=== PATIENT | male | born 1945 | race Caucasian/White ===

== ENCOUNTER 2019-08-20 06:56 | Day surgery (SDC) | payer MEDICARE ==
[~2019-08-20] VITALS: Ht 172.7 cm; Wt 56.7 kg
[~2019-08-20 06:56] MED LIST: TIMOLOL 0.25%5 ML OP; XALATAN0.005 % OP
[2019-08-20 09:45] VITALS: BP 121/68
== END 2019-08-20 08:48 | disposition home or self-care (01) ==
LOC: ORM 06:56
PROVIDERS: ATTEND Internal Medicine Gastroenterology
PROC: 0DBK8ZX Excision of Ascending Colon, Via Natural or Artificial Opening Endoscopic, Diagnostic (ICD-10-PCS; principal; 2019-08-20)
PROC: 0DBL8ZX Excision of Transverse Colon, Via Natural or Artificial Opening Endoscopic, Diagnostic (ICD-10-PCS; 2019-08-20)
PROC: 0DBN8ZX Excision of Sigmoid Colon, Via Natural or Artificial Opening Endoscopic, Diagnostic (ICD-10-PCS; 2019-08-20)
PROC: 0DBH8ZX Excision of Cecum, Via Natural or Artificial Opening Endoscopic, Diagnostic (ICD-10-PCS; 2019-08-20)
DX: D12.0 Benign neoplasm of cecum (principal); D12.3 Benign neoplasm of transverse colon; D12.2 Benign neoplasm of ascending colon; D12.5 Benign neoplasm of sigmoid colon; K64.4 Residual hemorrhoidal skin tags; Z80.0 Family history of malignant neoplasm of digestive organs

== ENCOUNTER 2022-02-28 12:36 | Emergency (ER) | payer MEDICARE ==
[~2022-02-28] VITALS: Ht 172.7 cm; Wt 44.0 kg
[~2022-02-28 12:36] MED LIST changes: +ALLERGY RELIEF180 M1 PO; +CLARITIN-D1 TA2 PO; +TESSALON PERLE100 MG PO
[2022-02-28 13:58] LABS: HEMATOCRIT 42.9 % (39.0-50.0); HEMOGLOBIN 12.9 g/dl (14.0-18.0); IMMATURE GRANULOCYTES 0.3 % (0.0-5.0); MEAN CELL VOLUME 87.9 fL CALC (80.0-100.0); MEAN CORPUSCULAR HGB 26.4 pG CALC (26.0-32.0); MEAN CORPUSCULAR HGB CONC 30.1 g/dL CAL (32.0-36.0); NEUT# 16.89 thou/uL (1.82-7.42); RED BLOOD COUNT 4.88 mill/uL (4.70-6.10); RED CELL DISTRI WIDTH 15.3 % (11.5-15.5)
[2022-02-28 14:18] LABS: ALBUMIN 3.3 g/dL (3.2-5.0); ALKALINE PHOSPHATASE 127 u/l (38-126); ANION GAP 16 (6-22 (CALC)); BILIRUBIN, TOTAL 0.5 mg/dL (0.0-1.4); BUN 36 mg/dL (8-23); BUN/CREATININE RATIO 28 (12-20 (CALC)); CARBON DIOXIDE 29 mmol/l (22-30); CHLORIDE 99 mmol/l (95-108); CREATININE 1.3 mg/dL (0.7-1.3); GFR 54 ML/MIN (>=60 (CALC)); GFR FOR AFR.AMER. > 60 ML/MIN (>=60 (CALC)); LIPASE 143 u/l (23-300); MAGNESIUM 2.2 mg/dL (1.6-2.3); POTASSIUM 4.5 mmol/l (3.5-5.1); SGOT/AST 22 u/l (19-48); SODIUM 139 mmol/l (137-146); TOTAL PROTEIN 8.1 g/dL (6.3-8.2)
[2022-02-28 17:38] VITALS: BP 104/66
== END 2022-02-28 17:38 | disposition short-term general hospital (02) ==
LOC: ED 12:36
PROVIDERS: Family Medicine
DX: R22.1 Localized swelling, mass and lump, neck (principal); R91.8 Other nonspecific abnormal finding of lung field; R64 Cachexia; R62.7 Adult failure to thrive; H40.9 Unspecified glaucoma; Z87.442 Personal history of urinary calculi; Z20.822 Contact with and (suspected) exposure to COVID-19
CPT/HCPCS: Q9967

== ENCOUNTER 2023-11-18 11:04 | Inpatient (IN) | payer MEDICARE ==
[2023-11-18] VITALS (14 sets, daily range): BP systolic 106–135; BP diastolic 67–76
[~2023-11-18] VITALS: Ht 172.7 cm; Wt 48.0 kg
--- NOTE | 2023-11-18 11:04 | NUR ---
PATIENT ARRIVED TO ER VIA POV. PATIENT WHEELED TO ROOM BY ER STAFF. PATIENT AWAKE, ALERT AND STABLE. NO DISTRESS NOTED. PHYSCIIAN NOTIFIED.
[2023-11-18 11:35] LABS: BASO% 0.1 % (0-3); EOS% 0.2 % (0-8); HEMOGLOBIN 14.6 g/dl (14.0-18.0); IMMATURE GRANULOCYTES 0.2 % (0.0-5.0); LYMPH% 6.4 % (15-41); MEAN CELL VOLUME 92.7 fL CALC (80.0-100.0); MEAN CORPUSCULAR HGB CONC 31.3 g/dL CAL (32.0-36.0); MONO% 5.2 % (2-13); NEUT# 10.61 thou/uL (1.82-7.42); NEUT% 87.9 % (42-76); RED BLOOD COUNT 5.04 mill/uL (4.70-6.10); RED CELL DISTRI WIDTH 14.4 % (11.5-15.5)
[2023-11-18 11:37] LABS: HEMATOCRIT 46.7 % (39.0-50.0)
--- NOTE | 2023-11-18 11:38 | NUR ---
XRAY IN ROOM WITH PT.
[2023-11-18 11:51] LABS: ALBUMIN 3.6 g/dL (3.2-5.0); ALKALINE PHOSPHATASE 91 u/l (38-126); ANION GAP 15 (6-22 (CALC)); BUN 42 mg/dL (8-23); BUN/CREATININE RATIO 30 (12-20 (CALC)); CARBON DIOXIDE 27 mmol/l (22-30); CHLORIDE 103 mmol/l (95-108); CREATININE 1.4 mg/dL (0.7-1.3); GFR FOR AFR.AMER. 60 ML/MIN (>=60 (CALC)); GFR OTHER RACES 49 ML/MIN (>=60 (CALC)); POTASSIUM 4.8 mmol/l (3.5-5.1); SGOT/AST 29 u/l (19-48); SODIUM 140 mmol/l (137-146); TOTAL PROTEIN 8.1 g/dL (6.3-8.2)
[2023-11-18 11:52] LABS: BILIRUBIN, TOTAL 0.8 mg/dL (0.2-1.3)
--- NOTE | 2023-11-18 12:30 | NUR ---
PT VERBALIZED NO NEEDS. PT ADVISED OF CONTINUED WAIT TIMES.
--- NOTE | 2023-11-18 13:30 | NUR ---
PT VSS. PT IS ALERT. CALL LIGHT IN REACH.
--- NOTE | 2023-11-18 14:30 | NUR ---
PT IS AWARE OF CONTINUED WAIT TIMES. PT VSS. PT VERBALZIED NO NEEDS.
[2023-11-18 15:10] LABS: URINE BLOOD DIPSTICK Trace-intact (NEGATIVE); URINE GLUCOSE - DIPSTICK Negative (NEGATIVE); URINE KETONE Trace mg/dL (NEGATIVE); URINE LEUK ESTERASE Negative (NEGATIVE); URINE NITRITE - DIPSTICK Negative (Negative); URINE PH 5.5 (4.5-8.0); URINE PROTEIN - DIPSTICK Negative (NEG-TRACE); URINE SPECIFIC GRAVITY >=1.030; URINE UROBILINOGEN - DIPSTICK 0.2 E.U./dL (0.2)
[2023-11-18 15:16] LABS: URINE COLOR Dark yellow
--- NOTE | 2023-11-18 15:30 | NUR ---
PT VERBALIZED NO NEEDS. PT PROVIDED A WARM BLANKET. VSS
--- NOTE | 2023-11-18 16:30 | NUR ---
PT IS Aware of continued wait times.
--- NOTE | 2023-11-18 18:32 | NUR ---
PT SETTLED IN BED PT ABLE TO STAND WITH ASSISTANCE. ALL SAFETY PRECAUTIONS IN PLACE WITH CALL LIGHT IN REACH.
--- NOTE | 2023-11-18 18:35 | NUR ---
PT REPORT PROVIDED TO [facility] NURSE. PT GATHERED ALL BELONINGS PRIOR TO DEPATURE FROM ER.
--- NOTE | 2023-11-18 20:00 | NUR ---
PT RESTING ASSESSMENT AND ADMISSION DONE WITH FAMILY AT BEDSIDE. NO DISTRESS NOTED. PT HAS A GUEVARA URINE EVA IN COLOR WITH FOUL ODOR. IV FLUIDS STARTED. ALL QUESTIONS ANSWERED. CALL LIGHT WITHIN REACH. PLAN OF CARE ONGOING.
--- NOTE | 2023-11-19 | NUR ---
PT SLEEPING NO DISTRESS NOTED ON EXAM. CALL LIGHT WITHIN REACH.
[2023-11-19 00:13] VITALS: BP 102/53
--- NOTE | 2023-11-19 04:30 | NUR ---
PT RESTING REPORTS NO DISCOMFORT. GUEVARA CATHETER BAG EMPTIED 300 OUT YELLOW IN COLOR. CALL LIGHT WITHIN REACH. PLAN OF CARE ONGOING.
[2023-11-19 04:53] VITALS: BP 102/49
[2023-11-19 06:14] LABS: BASO% 0.1 % (0-3); EOS% 1.1 % (0-8); HEMOGLOBIN 12.7 g/dl (14.0-18.0); IMMATURE GRANULOCYTES 0.1 % (0.0-5.0); LYMPH% 8.5 % (15-41); MEAN CELL VOLUME 92.4 fL CALC (80.0-100.0); MEAN CORPUSCULAR HGB CONC 32.5 g/dL CAL (32.0-36.0); MONO% 6.5 % (2-13); NEUT# 6.93 thou/uL (1.82-7.42); NEUT% 83.7 % (42-76); RED BLOOD COUNT 4.23 mill/uL (4.70-6.10); RED CELL DISTRI WIDTH 14.4 % (11.5-15.5)
[2023-11-19 06:33] LABS: HEMATOCRIT 39.1 % (39.0-50.0)
[2023-11-19 06:42] LABS: ANION GAP 6 (6-22 (CALC)); BUN 37 mg/dL (8-23); BUN/CREATININE RATIO 35 (12-20 (CALC)); CHLORIDE 103 mmol/l (95-108); CREATININE 1.1 mg/dL (0.7-1.3); GFR FOR AFR.AMER. > 60 ML/MIN (>=60 (CALC)); GFR OTHER RACES > 60 ML/MIN (>=60 (CALC)); MAGNESIUM 2.3 mg/dL (1.6-2.3); POTASSIUM 4.2 mmol/l (3.5-5.1); SODIUM 140 mmol/l (137-146)
[2023-11-19 06:43] LABS: CARBON DIOXIDE 35 mmol/l (22-30)
--- NOTE | 2023-11-19 07:16 | NUR ---
pt glucose was 142 @0630
--- NOTE | 2023-11-19 07:26 | NUR ---
SHIFT CHANGE REPORT, PT AWAKE ALERT AND ORIENTED RESTING IN BED, DENIES PAIN/DISCOMFORT, IVF INFUSING, TELE MONITOR IN PLACE, GUEVARA CATHETER IN PLACE WITH YELLOW URINE, CALL FREED IN REACH AND BED LOCKED IN LOWEST POSITION.
[2023-11-19 07:43] VITALS: BP 101/56
[2023-11-19 11:07] VITALS: BP 95/54
[2023-11-19] MEDS ORDERED: DORZOLAMIDE HCL/1 ML (15:29)
[2023-11-19] MEDS ORDERED: (None)1 % (15:31)
[2023-11-19] MEDS ORDERED: XALATAN0.005 % (15:33)
[2023-11-19 16:17] VITALS: BP 119/71
--- NOTE | 2023-11-19 20:00 | NUR ---
PT ASSISTED TO BSC WITH MINIMAL HELP. PT ALERT AND ORIENTED. NO DISTRESS NOTED ON EXAM. ASSESSMENT DONE. PT ABLE TO HAVE A BM WITHOUT ANY DIFFICULTY. BED LINENS CHANGED. CALL LIGHT WITHIN REACH. BED ALARM ON. PLAN OF CARE ONGOING.
[2023-11-19 20:25] VITALS: BP 103/52
[2023-11-20] VITALS (7 sets, daily range): BP systolic 87–138; BP diastolic 49–67
--- NOTE | 2023-11-20 | NUR ---
PT RESTING NO DISTRESS NOTED. BED ALARM ON. CALL LIGHT WITHIN REACH. PLAN OF CARE ONGOING.
[2023-11-20 06:02] LABS: HEMATOCRIT 33.4 % (39.0-50.0); IMMATURE GRANULOCYTES 0.1 % (0.0-5.0); LYMPH% 5.2 % (15-41); MEAN CELL VOLUME 94.9 fL CALC (80.0-100.0); MEAN CORPUSCULAR HGB 30.1 pG CALC (26.0-32.0); MEAN CORPUSCULAR HGB CONC 31.7 g/dL CAL (32.0-36.0); MONO% 2.2 % (2-13); NEUT# 7.03 thou/uL (1.82-7.42); NEUT% 91.5 % (42-76); RED BLOOD COUNT 3.52 mill/uL (4.70-6.10); RED CELL DISTRI WIDTH 14.6 % (11.5-15.5)
[2023-11-20 06:17] LABS: HEMOGLOBIN 10.6 g/dl (14.0-18.0)
[2023-11-20 06:18] LABS: ANION GAP 6 (6-22 (CALC)); BUN 23 mg/dL (8-23); BUN/CREATININE RATIO 30 (12-20 (CALC)); CHLORIDE 108 mmol/l (95-108); CREATININE 0.8 mg/dL (0.7-1.3); GFR FOR AFR.AMER. > 60 ML/MIN (>=60 (CALC)); GFR OTHER RACES > 60 ML/MIN (>=60 (CALC)); POTASSIUM 3.6 mmol/l (3.5-5.1); SODIUM 136 mmol/l (137-146)
[2023-11-20 06:22] LABS: CARBON DIOXIDE 26 mmol/l (22-30)
--- NOTE | 2023-11-20 07:00 | NUR ---
BEDSIDE REPORT RECIEVED
--- NOTE | 2023-11-20 08:01 | NUR ---
PT RESTING IN SEMI FOWLERS POSITION. PT A/OX3. RESPIRATIONS EVEN AND UNLABORED ON ROOM AIR. LUNG SOUNDS CLEAR . HEART RHYTHM NORMAL WITH TELE IN PLACE. BOWEL SOUNDS ACTIVE. #22G LAC INFILTRATED. ATTEMPTED TO OBTAINED NEW SITE, UNSUCCESSFUL X2. DIFFERENT NURSE TO ATTEMPT. SKIN INTACT.PT DENIES OF ANY PAINS. PT ORIENTED TO ROOM AND CALL LIGHT SYSTEM. ALL SAFETY PRECAUTIONS ARE IN PLACE WITH CALL LIGHT IN REACH.
--- NOTE | 2023-11-20 10:05 | NUR ---
PAOLA REMOVED PER VERBAL ORDER FROM [place] [facility]ST. PT TOLERATED WELL. PT EDUCATED ON NEED TO VOID POST REMOVAL. PT VERBLAIZED UNDERSTANDING. PT AMBULATED UP AND DOWN SUAREZ WITHOUT ANY ASSISTANCE. STEADY GAIT NOTED WITH STAFF BY SIDE.
--- NOTE | 2023-11-20 12:52 | NUR ---
PT SITTING UPP IN CHAIR. RESPIRATIONS EVEN AND UNLABORED ON ROOM AIR.TELE MONITORING IN PLACE. PT HAS YET TO VOID. REINFORCED NEED TO URINATE. PT VERBLAIZED UNDERSTANDING. ALL SAFETY PRECAUTIONS ARE IN PLAACE WITH CALL LIGHT IN REACH
--- NOTE | 2023-11-20 14:04 | NUR ---
BLADDER SCAN COMPLETED DUE TO NO URINE OUTPUT. RESULTS IN Terri SPENCER, ANRP INFORMED.
--- NOTE | 2023-11-20 14:33 | NUR ---
PT VOIDED 50 ML OF CLEAR EVA URINE. POST VOID RESIDUAL RESULTING IN 127. ANRP INFORMED.
[2023-11-20] MEDS ORDERED: OMNICEF300 MG PO (14:38)
[2023-11-20] MEDS ORDERED: METRONIDAZOLE500 MG PO (14:39)
--- NOTE | 2023-11-20 15:00 | NUR ---
ELEVATED TEMP AND HR NOTED. ANRP INFORMED. TYLENOL ADMINISTERED. PT INFORMED OF NEED TO STAY ANOTHER NIGHT DUE TO FEVER. PT VERBALIZED UNDERSTANDING.
--- NOTE | 2023-11-20 16:17 | NUR ---
PT RESTING IN SEMI FOWLERS POSITION. RESPIRATIONS EVEN AND UNLABORED ON ROOM AIR. TELE MONITORING IN PLACE. TEMP NOW STABLE AFTER TYLENOL. #22G LAC STARTED BY VADIM ROWELL. PT DENIES OF ANY ADDITIONAL NEEDS. ALL SAFETY PRECAUTIONS ARE IN PLACE WITH CALL LIGHT IN REACH
--- NOTE | 2023-11-20 20:00 | NUR ---
PT RESTING BROTHER AT BEDSIDE. NO DISTRESS NOTED ON EXAM. ASSESSMENT DONE. TEMP 98.4. NURSE PROVIDED SISTER AN UPDATE OVER THE PHONE WITH THE PERMISSION OF THE PT. CALL LIGHT WITHIN REACH. IV SITE CHECK. PLAN OF CARE ONGOING.
--- NOTE | 2023-11-20 21:12 | NUR ---
pt had a bp of [id number] @1901. notified charline gibbs @1909.
--- NOTE | 2023-11-21 | NUR ---
PT RESTING NO CHANGE. CALL LIGHT WITHIN REACH. BED ALARM ON.
[2023-11-21 04:14] VITALS: BP 91/50
[2023-11-21 05:05] LABS: BASO% 0.1 % (0-3); EOS% 0.8 % (0-8); HEMATOCRIT 29.9 % (39.0-50.0); HEMOGLOBIN 9.8 g/dl (14.0-18.0); IMMATURE GRANULOCYTES 0.4 % (0.0-5.0); LYMPH% 4.8 % (15-41); MEAN CELL VOLUME 92.6 fL CALC (80.0-100.0); MEAN CORPUSCULAR HGB 30.3 pG CALC (26.0-32.0); MEAN CORPUSCULAR HGB CONC 32.8 g/dL CAL (32.0-36.0); MONO% 3.2 % (2-13); NEUT# 6.87 thou/uL (1.82-7.42); NEUT% 90.7 % (42-76); RED BLOOD COUNT 3.23 mill/uL (4.70-6.10); RED CELL DISTRI WIDTH 14.6 % (11.5-15.5)
[2023-11-21 05:18] LABS: ANION GAP 5 (6-22 (CALC)); BUN 17 mg/dL (8-23); BUN/CREATININE RATIO 26 (12-20 (CALC)); CARBON DIOXIDE 26 mmol/l (22-30); CHLORIDE 108 mmol/l (95-108); CREATININE 0.6 mg/dL (0.7-1.3); GFR FOR AFR.AMER. > 60 ML/MIN (>=60 (CALC)); GFR OTHER RACES > 60 ML/MIN (>=60 (CALC)); POTASSIUM 3.5 mmol/l (3.5-5.1); SODIUM 134 mmol/l (137-146)
--- NOTE | 2023-11-21 06:00 | NUR ---
PT VOID 100ML URINE THEN BLADDER SCAN SHOWED 150ML.
[2023-11-21 07:00] VITALS: BP 90/50
--- NOTE | 2023-11-21 07:30 | NUR ---
patient voided in toilet while having a bowel movement.
--- NOTE | 2023-11-21 07:45 | NUR ---
patient assisted to recliner.
--- NOTE | 2023-11-21 08:06 | NUR ---
BEDSIDE REPORT RECEIVED FROM OFF GOING NURSE. PATIENT UP TO BATHROOM RECEIVING SHOWER AND AM CARE. MULTIPLE PATIENT UP TO TOLIET FOR MULTIPLE BOWEL MOVEMENTS PER WHOLESALER. PATIENT DENIES PAIN OR DISCOMFORT. RESPIRATIONS EVEN AND UNLABORED. SAFETY MEASURES INPLACE. CALL LIGHT WITHIN REACH.
[2023-11-21 10:39] VITALS: BP 103/58
--- NOTE | 2023-11-21 10:54 | NUR ---
PATIENT SITTING UP IN RECLINER CHAIR IN ROOM. DENIES PAIN OR DISCOMFORT. RESPIRATIONS EVEN AND UNLABORED ON ROOM AIR. IV FLUIDS CONTINUE. BROTHER IN TO VISIT AND SPOKE WITH CASE MANAGEMENT REGARDING DISCHARGE PLANNING. NO CONCERNS VOICED TO NURSE AT THIS TIME. CALL LIGHT WITHIN REACH.
--- NOTE | 2023-11-21 14:07 | NUR ---
PATIENT AWAKE AND SITTING UP IN RECLINER CHAIR IN ROOM. DENIES PAIN OR DISCOMFORT AT THIS TIME. RESPIRATIONS EVEN AND UNLABORED ON ROOM AIR. IV FLUIDS CONTINUE. SAFETY MEASURES IN PLACE. CALL LIGHT WITHIN REACH.
[2023-11-21] MEDS ORDERED: MOXIFLOXACIN H400 MG PO (14:31)
[2023-11-21 15:36] VITALS: BP 99/60
--- NOTE | 2023-11-21 18:10 | NUR ---
DISCHARGE INSTRUCTIONS GIVEN TO PATIENT WITH BROTHER AT BEDSIDE. PATIENT CONFUSED BUT STATES UNDERSTANDING OF INSTRUCTIONS. DENIES PAIN OR DISCOMFORT AT TIME OF DISCHARGE. VALUABLES SENT HOME WITH PATIENT.
[2023-11-22] MEDS ORDERED: LEVAQUIN750 M1 PO (12:37)
--- NOTE | 2023-11-24 11:54 | NUR ---
Discharge follow up call completed 11/24/23. Pt's brother states patient is doing reasonably well and improving daily. Patient is taking prescribed medication as directed. Pt has been unable to contact PCP as phone # is out of service. Assisted patient with new number for provider. No other needs at this time. Pt. is appreciative of call and assistance.
== END 2023-11-21 18:00 | disposition home or self-care (01) | DRG 178 ==
LOC: ED 11:04 → ED-I 16:55 → ED 17:31 → MS2 17:32
PROVIDERS: Family Medicine; ADMIT Student in an Organized Health Care Education/Training Program; ATTEND Student in an Organized Health Care Education/Training Program
PROC: 0T9B70Z Drainage of Bladder with Drainage Device, Via Natural or Artificial Opening (ICD-10-PCS; principal; 2023-11-18)
DX: J69.0 Pneumonitis due to inhalation of food and vomit (principal); N13.8 Other obstructive and reflux uropathy; Z68.1 Body mass index [BMI] 19.9 or less, adult; R64 Cachexia; R62.7 Adult failure to thrive; R91.8 Other nonspecific abnormal finding of lung field; K59.01 Slow transit constipation; R13.13 Dysphagia, pharyngeal phase; N40.1 Benign prostatic hyperplasia with lower urinary tract symptoms; H40.9 Unspecified glaucoma; Z86.14 Personal history of Methicillin resistant Staphylococcus aureus infection; Z20.822 Contact with and (suspected) exposure to COVID-19; Z87.442 Personal history of urinary calculi; Z88.0 Allergy status to penicillin
CPT/HCPCS: J1650; J2280; Q9967